=== PATIENT | female | born 1935 | race Caucasian/White ===

== ENCOUNTER 2018-06-16 14:59 | Emergency (ER) | payer MEDICARE, MEDICAID ==
[~2018-06-16] VITALS: Ht 162.6 cm; Wt 61.3 kg
[~2018-06-16 14:59] MED LIST: ASPI-529 PO; CALC-855 PO; CHOL500044 PO; FLAX340P PO; FURO-150 PO; HYDR-569 PO; LISI10TA4 PO; MAGN400C PO; POTA20TA10 PO; RIVA20TA PO; SOTA120T PO; VITC500T PO; [UNRECOGNIZED DRUG - CODE] PO
[2018-06-16 16:55] VITALS: BP 133/89
== END 2018-06-16 17:28 | disposition home or self-care (01) ==
LOC: ER 15:00
DX: S02.2XXA Fracture of nasal bones, initial encounter for closed fracture (principal); S09.90XA Unspecified injury of head, initial encounter; I48.91 Unspecified atrial fibrillation; M19.90 Unspecified osteoarthritis, unspecified site; G89.29 Other chronic pain; Z90.49 Acquired absence of other specified parts of digestive tract; Z90.710 Acquired absence of both cervix and uterus; Z95.1 Presence of aortocoronary bypass graft; Z88.5 Allergy status to narcotic agent; Z88.8 Allergy status to other drugs, medicaments and biological substances; Z79.82 Long term (current) use of aspirin; Z79.899 Other long term (current) drug therapy; W01.0XXA Fall on same level from slipping, tripping and stumbling without subsequent striking against object, initial encounter; Y93.89 Activity, other specified; Y92.89 Other specified places as the place of occurrence of the external cause; Y99.8 Other external cause status
CPT/HCPCS: 70450; 70486; 99284

== ENCOUNTER 2018-08-01 21:16 | Emergency (ER) | payer MEDICARE, MEDICAID ==
[~2018-08-01] VITALS: Ht 162.6 cm; Wt 61.3 kg
[~2018-08-01 21:16] MED LIST changes: +HYDR-4383 PO; -HYDR-569 PO
[2018-08-01] MEDS ORDERED: acetaminophen 325mg tablet PO ONE (21:50)
[2018-08-01] MEDS ORDERED: ibuprofen tablet 400 MG TABLET PO ONE (21:50)
[2018-08-01 22:21] VITALS: BP 111/67
== END 2018-08-01 22:24 | disposition home or self-care (01) ==
LOC: ER 21:17
DX: M25.551 Pain in right hip (principal); M19.90 Unspecified osteoarthritis, unspecified site; I25.10 Atherosclerotic heart disease of native coronary artery without angina pectoris; Z88.6 Allergy status to analgesic agent; Z88.8 Allergy status to other drugs, medicaments and biological substances; Z79.899 Other long term (current) drug therapy; Z90.49 Acquired absence of other specified parts of digestive tract; Z90.710 Acquired absence of both cervix and uterus; Z95.0 Presence of cardiac pacemaker; Z95.1 Presence of aortocoronary bypass graft
CPT/HCPCS: 99284

== ENCOUNTER 2018-11-22 15:06 | Emergency (ER) | payer MEDICARE, MEDICAID ==
[~2018-11-22] VITALS: Ht 162.6 cm; Wt 63.0 kg
[2018-11-22 15:20] VITALS: BP 130/104
[2018-11-22] MEDS ORDERED: benzonatate 100mg capsule PO ONE (16:25)
[2018-11-22] MEDS ORDERED: BENZ-16 PO (16:26)
[2018-11-22 17:53] LABS: ALANINE AMINOTRANSFERASE 24 U/L (12-78); ALBUMIN 3.8 G/DL (3.4-5.0); ALBUMIN/GLOBULIN RATIO 1.1 (1.1-1.5); ALKALINE PHOSPHATASE 115 IU/L (46-116); ANION GAP 4 (8-16); ASPARTATE AMINO TRANSFERASE 27 U/L (10-37); BILIRUBIN,TOTAL 0.7 MG/DL (0.1-1.0); BLOOD UREA NITROGEN 13 MG/DL (7-18); CALCIUM 9.3 MG/DL (8.5-10.1); CHLORIDE 98 MMOL/L (99-107); CREATININE 0.59 MG/DL (0.40-0.90); GLUCOSE 101 MG/DL (70-104); POTASSIUM 4.6 MMOL/L (3.5-5.1); SODIUM 133 MMOL/L (135-145); TOTAL PROTEIN 7.3 G/DL (6.4-8.2); eGFR > 90 ML/MIN
== END 2018-11-22 18:37 | disposition home or self-care (01) ==
LOC: ER 15:07
DX: R05 Cough (principal); R06.2 Wheezing; I50.9 Heart failure, unspecified; M19.90 Unspecified osteoarthritis, unspecified site; G89.29 Other chronic pain; Z90.49 Acquired absence of other specified parts of digestive tract; Z90.710 Acquired absence of both cervix and uterus; Z95.0 Presence of cardiac pacemaker; Z98.890 Other specified postprocedural states; Z88.5 Allergy status to narcotic agent; Z88.8 Allergy status to other drugs, medicaments and biological substances; Z79.82 Long term (current) use of aspirin; Z79.01 Long term (current) use of anticoagulants; Z79.899 Other long term (current) drug therapy
CPT/HCPCS: 36415; 71045; 80053; 83880; 99284